=== PATIENT | female | born 1985 | race Caucasian/White ===

== ENCOUNTER 2017-08-23 21:48 | Emergency (ER) | payer MEDICAID ==
[2017-08-23 22:00] VITALS: BP 111/72
--- NOTE | 2017-08-23 22:44 | XRAY Report ---
EXAM: RIGHT HAND RADIOGRAPHY EXAM DATE: 08/23/2017 10:36 PM. CLINICAL HISTORY: Fall, pain COMPARISON: None. TECHNIQUE: 3 views. FINDINGS: Bones: No evidence of fracture. Stable bone island within the proximal scaphoid. Joints: No evidence of dislocation. Soft Tissues: No unexpected soft tissue findings. IMPRESSION: No evidence of fracture or dislocation. [facility] Referring Provider Line: [phone] SITE ID: [id number]
--- NOTE | 2017-08-23 23:12 | ED Physician Documentation ---
PD HPI UPPER EXT INJURY - Stated complaint Stated Complaint: HAND PX - Chief complaint Chief Complaint: Ext Problem - History obtained from History obtained from: Patient - History of Present Illness Location: Right, Hand Type of injury: Blunt / blow Where injury occurred: Home Timing - onset: How many days ago (2) Timing - details: Abrupt onset Improved by: Rest, Immobilization Worsened by: Moving, Palpating Associated symptoms: Swelling, Discolored Similar symptoms before: Has not had sx before Recently seen: Not recently seen - Additonal information Additional information: Patient is a 31 year old female with no significant past medical history who is presenting to the emergency department for right hand pain. Patient states that her daughter was playing outside and she heard her scream so she ran outside. When she ran outside she slipped hitting her right hand. 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 Review of Systems Constitutional: denies: Fever, Chills Eyes: reports: Reviewed and negative Ears: reports: Reviewed and negative Throat: reports: Reviewed and negative Cardiac: reports: Reviewed and negative Respiratory: reports: Reviewed and negative GI: reports: Reviewed and negative : reports: Reviewed and negative Skin: denies: Abrasion (s), Laceration (s) Musculoskeletal: reports: Extremity pain Neurologic: denies: Generalized weakness, Focal weakness, Numbness Immunocompromised: denies: Immunocompromised PD PAST MEDICAL HISTORY - Past Medical History Past Medical History: Yes Cardiovascular: None Respiratory: None Neuro: None Endocrine/Autoimmune: None GI: None 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 : None HEENT: None Psych: None Musculoskeletal: Chronic back pain Derm: None - Past Surgical History Past Surgical History: No - Present Medications Home Medications: Ambulatory Orders Medication Instructions Recorded Confirmed Ibuprofen 600 mg PO TID #20 tablet 06/20/15 10/10/15 Hydrocodone/Acetaminophen [Murray 1 each PO Q6H PRN #20 tablet 10/10/15 5-325 Tablet] HYDROcod/ACETAM 5/325 [Murray 5/325] 1 - 2 ea PO Q6H PRN #15 tablet 03/05/16 Sulfamethoxazole/Trimethoprim 1 each PO BID #14 tablet 03/05/16 [Sulfamethoxazole-Tmp Ds Tablet] - Allergies Allergies/Adverse Reactions: Allergies Allergy/AdvReac Type Severity Reaction Status Date / Time No Known Drug Allergies Allergy Verified 10/10/15 18:19 - Social History Does the pt smoke?: Yes Smoking Status: Current every day smoker Does the pt drink ETOH?: No Does the pt have substance abuse?: No - Immunizations Immunizations are current?: Yes - POLST Patient has POLST: No PD ED PE NORMAL - Vitals Vital signs reviewed: Yes - General General: Alert and oriented X 3, No acute distress - HEENT HEENT: Atraumatic, PERRL - Neck Neck: Supple, no meningeal sign - Cardiac Cardiac: RRR, No murmur - Respiratory Respiratory: No respiratory distress, Clear bilaterally - Abdomen Abdomen: Soft, Non tender, Non distended - Neuro Neuro: Alert and oriented X 3, No motor deficit, No sensory deficit, Normal speech Eye Opening: Spontaneous Motor: Obeys Commands Verbal: Oriented GCS Score: 15 PD ED PE EXPANDED - Extremities Extremities: Right hand (mild tenderness to palpation of right 4th and 5th metacarpals), Motor intact, Sensory intact, Vascular intact, Tendon intact Results - Vitals Vitals: Vital Signs - 24 hr 08/23/17 21:56 Temperature 36.7 C Heart Rate 81 Respiratory 17 Rate Blood Pressure 111/72 O2 Saturation 100 Oxygen O2 Source Room air - Rads (name of study) right hand Radiology: Final report received (no fracture or dislocation) PD MEDICAL DECISION MAKING - ED course Complexity details: reviewed old records, reviewed results, re-evaluated patient , considered differential, d/w patient ED course: Patient was seen and examined at bedside. Patient had already been sent for imaging. results were reviewed and showed no fracture or dislocation. Patient required no further work up and was stable for discharge with outpatient follow up. Departure - Departure Disposition: 01 Home, Self Care Clinical Impression: Contusion of hand Condition: Good Instructions: ED Contusion Upper Ext Follow-Up: primary,care provider [Other] - As Needed Comments: Your diagnostics today were within normal limits. there was no acute fracture or dislocation. Your symptoms should continue to improve. You can take motrin or tylenol as needed for pain, and use ice as needed. Forms: Activity restrictions
== END 2017-08-23 23:18 | disposition home or self-care (01) ==
LOC: ED 21:48
DX: S60.221A Contusion of right hand, initial encounter (principal); W18.40XA Slipping, tripping and stumbling without falling, unspecified, initial encounter; W22.09XA Striking against other stationary object, initial encounter; Y93.02 Activity, running; Y92.009 Unspecified place in unspecified non-institutional (private) residence as the place of occurrence of the external cause; F17.200 Nicotine dependence, unspecified, uncomplicated
CPT/HCPCS: 99283